=== PATIENT | male | born 1935 | race Caucasian/White ===

== ENCOUNTER → 2020-07-09 11:22 | Outpatient (BNVA) | payer MEDICARE, SELFPAY | PROVIDERS: PCP Internal Medicine; Referring Provider Internal Medicine; Visit Provider Urology | DX: Z76.89 Persons encountering health services in other specified circumstances (principal) | CPT/HCPCS: Q3014 ==

== ENCOUNTER → 2020-09-25 15:36 | Outpatient (BNVA) | payer MEDICARE, SELFPAY | PROVIDERS: PCP Internal Medicine; Visit Provider Urology | DX: N31.9 Neuromuscular dysfunction of bladder, unspecified (principal); N45.3 Epididymo-orchitis; R33.9 Retention of urine, unspecified; C61 Malignant neoplasm of prostate | CPT/HCPCS: Q3014 ==